=== PATIENT | male | born 1990 | race American Indian/Alaskan Native ===

== ENCOUNTER 2017-04-04 11:43 | Emergency (ER) | payer SELFPAY ==
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
[2017-04-04] MEDS ORDERED: BOOSTRIX IM ONE (16:00)
[2017-04-04] MEDS ORDERED: NACL 0.9% IR ONE (16:00)
[2017-04-04] MEDS ORDERED: XYLOCAINE 1% MPF 5 mL INFILTRATI ONE (16:00)
[2017-04-04] MEDS ORDERED: NORCO 5/325 PO ONE (16:00)
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
[2017-04-04 17:56] VITALS: BP 108/76
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
== END 2017-04-04 17:30 | disposition home or self-care (01) ==
LOC: EDBD → ED 11:43
DX: S01.01XA Laceration without foreign body of scalp, initial encounter (principal); S51.812A Laceration without foreign body of left forearm, initial encounter; Y08.89XA Assault by other specified means, initial encounter; Y93.9 Activity, unspecified; Y92.9 Unspecified place or not applicable; Y99.9 Unspecified external cause status
CPT/HCPCS: 70450; 90471; 90715

== ENCOUNTER 2017-04-10 19:18 | Emergency (ER) | payer SELFPAY ==
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
[2017-04-11] MEDS ORDERED: TRIPLE ANTIBIOTIC TP ONE (04:07)
[2017-04-11 04:47] VITALS: BP 120/79
== END 2017-04-11 05:38 | disposition home or self-care (01) ==
LOC: ED 19:18
DX: L03.114 Cellulitis of left upper limb (principal)